=== PATIENT | female | born 1980 | race Caucasian/White ===

== ENCOUNTER 2021-11-26 00:07 | Day surgery (SDC) | payer OTHER, SELFPAY ==
[2021-11-20 14:08] VITALS: BMI 25.4
--- NOTE | 2021-11-20 14:32 | PC.NURSE ---
Report to the Outpatient Waiting Room, entrance under the green pavilion located off [facility], at time ___7:30AM____ on date __11/26/21 . OR Time: _9:30AM . - You and your visitor will be asked a series of questions to screen for COVID 19 for your protection. - Only one visitor is allowed at this time. - The patient visitor is requested to leave or wait in car when not with patient. - A mask is required within the hospital. Patients may have clear liquids (water, carbonated beverages, clear teas, apple juice) until 3 hours prior to surgery with a maximum of 20 ounces. - No food from midnight until time of surgery - Infants may have breast milk until 4 hours before surgery, formula 6 hours prior to surgery. - Children will be allowed to drink immediately following surgery. If applicable, please bring a bottle or sippy cup to assist with drinking. Juice, water, soda, and popsicles are readily available. For infants on formula, please bring formula the day of surgery. Pacifiers are allowed. Take the following medications with a SIP of water the morning of surgery: ___NONE Medications to discontinue per physician ____HOLD ALL VITAMINS/SUPPLEMENTS 7 DAYS PRE-OP PER DR FOSTER Date to take last dose___11/19/21 Please no make-up, nail portuguese, hairspray, perfume, deodorant, or body powder the day of surgery. No jewelry (including any body piercings) or valuables the day of surgery, leave them at home. Please take a shower or bath the night before, or the morning of, surgery with an antibacterial soap. Wear comfortable, loose fitting clothing. Children are encouraged to wear pajamas. - Jewelry must be removed prior to entering the operating room. Rings and piercings that are not removed may be cut off. - The hospital will not accept responsibility for valuables. - Please leave all valuables, including medications, at home the day of surgery. If you are going home after surgery, a licensed driver medic must drive you home. - NO public transportation without another adult. - We recommend that an adult stay with you for 24 hours following discharge. - We also recommend that you do not drive, make important decision, drink alcoholic beverages, or take any drugs that were not prescribed by your health care provider for at least 24 hours after your discharge time. For Pediatric surgeries, we recommend two adults accompany the child home (only one inside the building at this time). Follow any additional instructions given to you from your surgeon. If you or anyone in your household have experienced Covid symptoms in the past week, please notify your surgeon or the nurse liaison at the phone number below for possible testing. Telephone instructions given to __PATIENT and asked if any additional questions and then verbalized understanding. Patient advised to call surgeon office or pre surgery nurse liaison [phone] if any additional questions.
--- NOTE | 2021-11-22 14:05 | WPDANESEPPF ---
Anes - Initial Pre Proc Eval Procedure: Operation Date: 11/26/21 09:30 Proposed Procedures p Diagnostic Laparoscopy, Bilateral Salpingectomy, - Dayanna Lindsey DO s Hysteroscopy Dilation and Curettage with Novasure Endometrial Ablation - Dayanna Lindsey DO <Broderick Nichols MD - Last Filed: 12/04/21 13:17> Date/Time: 11/22/21 14:05 <Broderick Nichols MD - Last Filed: 12/04/21 13:17> Surgeon: Dayanna Lindsey DO <Broderick Nichols MD - Last Filed: 12/04/21 13:17> Pre Op Diagnosis: desires sterlization, menorrhagia <Broderick Nichols MD - Last Filed: 12/04/21 13:17> Patient Data Age: 41 Gender: F Height: 1.75 m Weight: 78 kg <Broderick Nichols MD - Last Filed: 12/04/21 13:17> Allergies Allergy/AdvReac Type Severity Reaction Status Date / Time Sulfa (Sulfonamide Allergy Rash Verified 11/26/21 07:38 Antibiotics) sulfamethoxazole Allergy Rash Verified 11/26/21 07:38 [From ] trimethoprim [From ] Allergy Rash Verified 11/26/21 07:38 <Broderick Nichols MD - Last Filed: 12/04/21 13:17> Home Medications Medication Instructions Recorded Confirmed Type cetirizine 10 mg capsule (Zyrtec) 10 mg PO HS 11/20/21 11/26/21 History cholecalciferol (vitamin D3) 50 50 mcg PO DAILY 11/20/21 11/26/21 History mcg (2,000 unit) capsule magnesium chloride 71.5 mg 71.5 mg PO DAILY 11/20/21 11/26/21 History (magnesium chloride) tablet,delayed release (Slow-Mag) acetaminophen 500 mg capsule 500 mg PO Q6H PRN fever or pain 11/26/21 Rx #30 caps gabapentin 300 mg capsule 300 mg PO TID #12 caps 11/26/21 Rx hydrocodone 5 mg-acetaminophen 325 1 tablet PO Q6H PRN pain #8 tabs 11/26/21 Rx mg tablet ibuprofen 600 mg tablet 600 mg PO Q6H PRN fever or pain 11/26/21 Rx #30 tabs polyethylene glycol 3350 17 17 g PO BID #119 grams 11/26/21 Rx gram/dose oral powder (Miralax) <Broderick Nichols MD - Last Filed: 12/04/21 13:17> Patient hx anesthesia problems: none <Tae Strong MD - Last Filed: 11/26/21 08:52> Family hx anesthesia problems: none <Tae Strong MD - Last Filed: 11/26/21 08:52> Results Review: All pre-operative results and documents have been reviewed as part of the pre-operative evaluation. <Broderick Nichols MD - Last Filed: 12/04/21 13:17> [facility] Past Medical History Medical History: Medical History (Updated 11/26/21 @ 08:51 by Tae Strong MD) Anxiety Panic attacks Paroxysmal SVT (supraventricular tachycardia) had secondary to anxiety; none for >than 1 year <Broderick Nichols MD - Last Filed: 12/04/21 13:17> Social History Social History: Social History Smoking packs per day: 1 Smoking cigarettes per day: 20.0 Years smoked: 26 Smoking pack-years: 26.00 Smoking status: Current every day smoker Tobacco type: cigarettes Additional smoking assessment comments: DECREASING TO 1/2 PACK CURRENTLY Substance use: never Additional living arrangements comments: BOYFRIEND AND CHILD Spiritual care concerns: No <Broderick Nichols MD - Last Filed: 12/04/21 13:17> Anes - Eval Final PreProcedure Day of Procedure 11/22/21 14:05 <Broderick Nichols MD - Last Filed: 12/04/21 13:17> Patient weight: normal <Tae Strong MD - Last Filed: 11/26/21 08:52> Heart: regular rate and rhythm <Tae Strong MD - Last Filed: 11/26/21 08:52> Lungs: clear to auscultation <Broderick Nichols MD - Last Filed: 12/04/21 13:17> decreased breath sounds <Tae Strong MD - Last Filed: 11/26/21 08:52> Airway: Mallampati scale class II <Tae Strong MD - Last Filed: 11/26/21 08:52> Neurological: alert and oriented <Tae Strong MD - Last Filed: 11/26/21 08:52> Last oral intake: >/= 8 hours <Broderick Nichols MD - Last Filed: 12/04/21 13:17> ASA classification: III <Tae Strong,
[2021-11-26] VITALS (16 sets, daily range): BP systolic 88–121; BP diastolic 55–77; PULSE 58–85; RESP 16–22; TEMP 36.1–36.5; O2SAT 87–100
--- NOTE | ~2021-11-26 | XR_ITS ---
XR chest 2V 11/26/2021 14:44 Indication: Dyspnea. Hypoxia. Procedure: 2 view chest Comparison: No prior studies for comparison. Findings: There is patchy bilateral airspace disease, compatible with pneumonia. No pleural effusion. Heart size normal. No pneumothorax. Impression: 1: Patchy bilateral pneumonia. Reviewed, dictated and finalized at location A. Impression: 1: Patchy bilateral pneumonia.
--- NOTE | 2021-11-26 07:13 | PM.IMHP ---
H&P: HPI History of Present Illness Date/Time: 11/26/21 07:13 Chief Complaint: I'm here for my surgery Narrative: She presents with heavy, regular periods. Declined preop EMB. Undesired fertility. Review of Systems Review of Systems: All systems reviewed & are unremarkable except as noted in HPI and below [facility] Past Medical History Medical History (Updated 11/26/21 @ 07:16 by Dayanna Lindsey DO) Anxiety Paroxysmal SVT (supraventricular tachycardia) had secondary to anxiety; none for >than 1 year Social History Social History Smoking packs per day: 1 Smoking cigarettes per day: 20.0 Years smoked: 26 Smoking pack-years: 26.00 Smoking status: Current every day smoker Tobacco type: cigarettes Additional smoking assessment comments: DECREASING TO 1/2 PACK CURRENTLY Substance use: never Living arrangements: with family Additional living arrangements comments: BOYFRIEND AND CHILD Spiritual care concerns: No Meds Home Medications and Allergies Home Medications Medication Instructions Recorded Confirmed Type cetirizine 10 mg capsule (Zyrtec) 10 mg PO HS 11/20/21 11/26/21 History cholecalciferol (vitamin D3) 50 50 mcg PO DAILY 11/20/21 11/26/21 History mcg (2,000 unit) capsule magnesium chloride 71.5 mg 71.5 mg PO DAILY 11/20/21 11/26/21 History (magnesium chloride) tablet,delayed release (Slow-Mag) Allergies Allergy/AdvReac Type Severity Reaction Status Date / Time Sulfa (Sulfonamide Allergy Rash Verified 11/26/21 07:38 Antibiotics) sulfamethoxazole Allergy Rash Verified 11/26/21 07:38 [From Febra] trimethoprim [From ] Allergy Rash Verified 11/26/21 07:38 Exam Const: General: comfortable and no acute distress Eyes: General: appearance normal, both eyes and all related structures Resp: Effort & Inspection: normal respiratory effort Auscultation: clear to auscultation bilaterally Cardio: Rate: regular rate Rhythm: regular rhythm Other: No murmurs GI: GI Palp: Yes Soft to palpation Auscultation: normal bowel sounds Other: Soft, non-distended Skin: General skin exam: normal color and no rashes or lesions noted Neuro: General: gait normal Speech: normal speech Motor exam (neuro): 5/5 motor strength present throughout Psych: Mental Status: mental status grossly normal Affect: normal affect Assessment and Plan Assessment and plan (1) Sterilization: Code(s): Z30.2 - Encounter for sterilization Status: Acute (2) Heavy menstrual bleeding: Code(s): N92.0 - Excessive and frequent menstruation with regular cycle Status: Acute
--- NOTE | 2021-11-26 07:23 | ECG_ITS ---
Measurements Intervals [place] Rate: 71 P: 51 DE: 199 QRS: 69 QRSD: 96 T: 49 QT: 392 QTc: 428 Interpretive Statements SINUS RHYTHM RSR' IN V1 OR V2, CONSIDER RIGHT VENTRICULAR HYPERTROPHY OR RIGHT VCD BORDERLINE ECG Electronically Signed On 11-26-2021 8:45:14 CDT by Suhail Vanessa D.O.
[2021-11-26] MEDS: GABAPENTIN 300 MG CAPSULE PO (07:58)
[2021-11-26] MEDS: ACETAMINOPHEN 500 MG TABLET 1000 MG PO (07:58)
[2021-11-26] MEDS: LACTATED RINGERS 1,000 ML 30 ML IV CONT ×2 (08:16→10:31)
--- NOTE | 2021-11-26 08:44 | WPDHPUPDATE1 ---
History and Physical Update Update Date/Time: 11/26/21 08:44 History and Physical has been reviewed, including an updated exam of the patient. There are NO changes in the patient's condition. Risks, benefits, and alternatives have been discussed and questions answered. Patient agrees to proceed with procedure.
[2021-11-26 08:49] LABS: Hematocrit 42.6 % (37.0-47.0); Hemoglobin 14.3 g/dL (12.0-15.0); Mean Corpuscular HGB Conc 33.6 g/dl (32-36); Mean Corpuscular Hemoglobin 30.6 pg (26-34); Mean Corpuscular Volume 91.2 fl (80-100); Platelet Count Result 308 k/mm3 (150-375); Red Blood Count 4.67 M/mm3 (4.2-5.4); Red Cell Distribution Width 13.1 % (11.5-14.5)
[2021-11-26] MEDS: BUPIVACAINE HCL 0.25% PF 30 ML VIAL INFILTRATE (10:12)
--- NOTE | 2021-11-26 10:17 | P.OP_ITS ---
Procedure Note - Detailed Date of Procedure 11/26/21 Pre-op Diagnosis Undesired fertility, abnormal uterine bleeding Post-op Diagnosis Same Procedure Performed Diagnostic laparoscopy, bilateral salpingectomy. Hysteroscopy D&C. Surgeon Dayanna Lindsey, DO Anesthesia General Indications Undesired fertility, heavy regular periods Findings Normal appearing vulva and vaginal canal. Medium-sized cervix. Uterus sounded to 10.5 cm. Internally, pelvic organs and gallbladder and bowel appeared grossly normal. Description of Procedure The patient was taken to the operating room where she was placed under general anesthesia. She was prepped and draped in the normal sterile fashion on dorsal lithotomy position. No preoperative antibiotics were indicated. After a time- out was performed the skin above the umbilicus was grasped with 2 penetrating towel clamps. The skin was injected with local and a small incision was made. A Veress needle was introduced and the saline water drop test was performed to confirm intraperitoneal placement. CO2 insufflation was started in the abdomen is round to a filling pressure of 12 mmHg. The Veress needle was then replaced with a 5 mm trocar which was inserted under direct visualization. Survey of the abdomen revealed no evidence of bowel or vascular injury upon entry. Patient was then placed in steep Trendelenburg position. Additional trocar sites of the right and left lower quadrants were identified, injected, incised and 5 mm trocars were introduced. LigaSure was then used to elevate the left tube is cauterized and transected off and handed off through the customer service assistant port. The procedure was repeated in identical fashion on the right side. The surgical pedicles were reinspected and found to be hemostatic. CO2 insufflation was allowed to escape from the abdomen and the trocars and instruments moved. The patient was then taken out of steep Trendelenburg position. Attention was then turned to the hysteroscopy portino of the procedure. The cervix was visualized using a speculum anterior lip was grasped with a single-tooth tenaculum. The uterus was sounded to 10.5 cm. Cervix was then sequentially dilated up to accommodate the hysteroscope. The scope was introduced and survey of the endometrial cavity revealed no evidence of endometrial lesions or masses. Both tubal ostia were visualized. Cervical measurements were taken. The hyste roscope was then removed and a thorough curettage of the entire cavity was performed and handed off. The NovaSure device was then introduced the cavity length was 5.5 cm, width 4 cm. The device was activated for 90 seconds at 110 w. The device was then retracted into the sheath and was removed from the uterus. All blood and fluid was wiped clean of the vaginal canal. The tenaculum was removed and the puncture sites were noted to be hemostatic. Speculum was removed. The patient was then extubated and taken to the recovery room in stable condition. All instrument sponge counts were correct at the conclusion of the procedure. Estimated Blood Loss 5 IV Fluids 700 Drains No Packing No Pathology Yes Complications No immediate complications Condition Stable Disposition PACU
[2021-11-26] MEDS: fentaNYL CITRATE INJ (*CRX) 100 MCG/2 ML VIAL 25 MCG IV PUSH ×2 (10:55→10:58)
--- NOTE | 2021-11-26 13:27 | SUR.PHASEII ---
Dr. Doss is aware that patient is unable to maintain her O2 sats above 90%. She has an incentive spirometer in room and is using it periodically. He said she just needs time for the anesthesia to wear off.
[2021-11-26] MEDS: KETOROLAC 30 MG/ML VIAL (*BKC) IV PUSH (13:36)
--- NOTE | 2021-11-26 14:24 | SUR.PHASEII ---
RN spoke w/ Dr. Lindsey about patient being unable to maintain her 02 sats above 90% still this long post-op. She told RN to order a stat chest x-ray.
--- NOTE | 2021-11-26 15:39 | SUR.PHASEII ---
RN contacted Dr. Lindsey a few times in regards to this patient's care. RN made her aware of the chest x-ray results as well as the physical assessment findings. RN, Dr. Doss, and an RT all listened to patient's lungs and they sounded clear on auscultation to us all. Dr. Lindsey is ok with sending patient home at this time and reached out to patient's primary doctor and set-up an appointment with them tomorrow.
== END 2021-11-26 16:20 | disposition home or self-care (01) ==
PROVIDERS: Visit Provider Obstetrics & Gynecology Gynecologic Oncology
PROC: (CPT 49320; principal; 2021-11-26 09:30)
PROC: 0U5B8ZZ Destruction of Endometrium, Via Natural or Artificial Opening Endoscopic (ICD-10-PCS; CPT 58563; 2021-11-26 09:30)
DX: Z30.2 Encounter for sterilization (principal); N92.0 Excessive and frequent menstruation with regular cycle; F41.9 Anxiety disorder, unspecified; Z87.891 Personal history of nicotine dependence; N93.9 Abnormal uterine and vaginal bleeding, unspecified; N94.6 Dysmenorrhea, unspecified; F41.0 Panic disorder [episodic paroxysmal anxiety]
CPT/HCPCS: 58661; 58558; 36415; 71046; 85027; 86850; 86900; 86901; 88302; 88305; 93005; A9270; J1100; J1885; J2250; J2405; J2704; J2710; J3010; J7030; J7120